=== PATIENT | male | born 1960 | race Caucasian/White ===

== ENCOUNTER 2020-01-09 17:44 | Emergency (ER) | payer MEDICAID ==
[~2020-01-09] VITALS: Ht 177.8 cm; Wt 81.6 kg
--- NOTE | 2020-01-09 17:55 | Emergency Room Report ---
History of Present Illness General Chief Complaint: Palpitations Source: Patient Present Illness HPI 59-year-old male with past medical history of hypertension presenting to the ER with palpitations. States he previously had chest pain, however that has resolved. Right now he is complaining of left posterior shoulder pain. Denies back pain, melena, hematochezia, dyspnea on exertion, cough, hemoptysis, leg swelling, weakness, fever, flank pain, hematuria or other symptoms The patient's symptoms were gradual onset, severity was moderate, duration since he was 8 years old He states that he has been having the symptoms "for the past 50 years" although worse over the past 1 day. Quality: Sharp, intermittent Past medical history: Hypertension Past surgical history: Denies Smoking: ++ Alcohol use: ++ Daily drinking Drug use: Denies Review of systems: CONST: No fevers or chills, No night sweats PULMONARY: No productive cough, No shortness of breath CARDIAC: No chest pain, ++ palpitations GI: No vomiting, No diarrhea , No melena_or_BRBPR : No dysuria, No hematuria, No discharge NEURO: No new_focal_weakness_or_numbness, No confusion, No vision changes 14 point Review of Systems is otherwise negative except per HPI Physical Exam: GENERAL: Awake_alert_ nontoxic, no acute distress Spo2 99% on RA -normal EYES: Extraocular muscles are intact. Conjunctivae clear. Lids without swelling ENT: External nose and ear normal_in_appearance. Oropharynx clear. Head_atraumatic, dry_oral_mucosa NECK: No JVD. No meningismus. No thyromegaly. Supple. Trachea midline. No nuchal rigidity RESP: Normal respiratory effort. Symmetric rise. No stridor. Clear_to_ausculta tion_No_rales_No_wheezes CARDIAC: Cardiac and regular rhytm. No_significant pedal edema. ABDOMEN: Soft. Nondistended. Nontender_No_rebound_or_guarding. MSK: Normal muscle tone, without rigidity. Extremities without asymmetric deformity or swelling. SKIN: Warm and dry. No visible cyanosis or pallor. No petechiae or purpura NEUROLOGIC: Alert, oriented x3. Motor_and_sensation_grossly_intact. No truncal ataxia. Gait_normal Psych: Normal mood and affect, normal judgment and insight - COORDINATION OF CARE Case was discussed with: Patient Any labs and imaging that were ordered were interpreted as part of the medical decision making: Medical Decision Making/Plan: Differential includes dehydration, acute coronary syndrome, pulmonary embolism, pneumonia, aortic dissection, pericardial tamponade, musculoskeletal chest pain, among others. Patient is nontoxic and well-appearing with stable vitals signs. The patients pain appears consistent with a musculoskeletal origin. Pain is re producible with palpation. EKG shows tachycardia without any obvious signs of ischemia. Tachycardia resolved after fluids. Also Ativan thiamine, folic acid. Patient demonstrates no signs of acute alcohol withdrawal or delirium tremens at the time of dis charge. CXR shows no evidence of pneumothorax, pneumonia, or significant pleural effusion. Troponin x1. CTA angio of the chest negative for PE, dissection, or other acute issue. He is incidentally found to have a lung nodule. Recommend repeat imaging within 1 year. No pneumonia Acute coronary syndrome is unlikely and the patient is low risk, pain is atypical, nonexertional, and troponin is negative with over 6 hrs of symptoms. The pain is not classic for pericarditis or myocarditis, and the patient has no significant risk factors for a pericardial effusion and has stable vitals signs, unlikely to have tamponade. The patient has no significant risk factors for aortic dissection, no history of connective tissue disorder, and the patients pain is not severe, radiating to the back, or tearing in nature. They have normal bilateral radial and pedal pulses. Patient observed for several hours in the ED, ECG with no emergent findings, patient discharged with no dangerous vital signs, patient instructed to follow up with PMD in the next 1-2 days to be referred for a treadmill stress test within the next 48-72 hours. HEART score < 4, which indicates low risk, so the patient can be safely discharged with the understanding that they need to make an appointment with a primary care doctor to be referred for a stress test within the next 48-72 hours, or if they cannot arrange that they are to return to the ED, or sooner than that if they have any changing, persistent, or worsening symptoms. A Train Driver consult was offered to the patient prior to discharge but the patient declined. All needs were met during this ED visit including food and water, change of clothes, prison referral/resources, and transportation. Allergies: Coded Allergies: No Known Allergies (Unverified , 01/09/20) COVID-19 Screening Contact w/high risk pt: No Experienced COVID-19 symptoms?: No COVID-19 Testing performed BARBER: No Nursing Documentation-PMH Hx Hypertension: Yes Physical Exam Vital Signs Date Time Temp Pulse Resp B/P (MAP) Pulse Ox O2 Delivery O2 Flow Rate FiO2 01/09/20 17:46 98.4 110 18 162/96 (118) 98 Room Air Sp02 EP Interpretation: reviewed, normal Medical Decision Making Diagnostic Impression: Primary Impression: Palpitations Additional Impressions: HTN (hypertension) Lung nodule EKG Diagnostic Results Troponin ordered: Yes When was troponin ordered?: Jan 09, 2020 EKG Time: 17:55 Rate: tachycardiac Rhythm: NSR ST Segments: no acute changes ASA given to the pt in ED: No PA Scribe Text 12-lead EKG (interpreted by me) Time: 1750 Indication: Rhythm analysis Tracing visualized and Interpreted by me. Rhythm: Sinus tachycardia Rate: 108 bpm QTc: 469 Morphology: No_significant_ST_elevations_or_depressions, No STEMI Impression: Sinus tachycardia. Normal axis. Normal intervals Rhythm Strip Diag. Results Rhythm Strip Time: 18:57 EP Interpretation: yes Rate: 98 Rhythm: NSR, no PVC's, no ectopy Chest X-Ray Diagnostic Results Chest X-Ray Diagnostic Results : DION Paizibe Text Chest X-Ray: Views: 1 view(s) Indication: Palpitations Findings: Normal heart size. Mediastinum normal. No infiltrate. Impression: No acute disease The X-ray(s) were independently viewed and interpreted contemporaneously Electronically signed by Aurora ford DO Last Vital Signs Date Time Temp Pulse Resp B/P (MAP) Pulse Ox O2 Delivery O2 Flow Rate FiO2 01/09/20 17:46 98.4 110 18 162/96 (118) 98 Room Air Disposition: HOME, SELF-CARE Admit Decision Time: 18:58 Condition: Stable Scripts Naproxen* (NAPROXEN*) 500 Mg Tablet. 500 MG ORAL TWICE A DAY for 14 Days, #28 TAB Prov: Aurora Monahan D.O. 01/09/20 Patient Instructions: Palpitations Additional Instructions: Instructions for patient/resident care technician: Follow up with your physician in 1-2 days. Follow-up with your doctor sooner if your condition requires a more timely clinical reevaluation. Return to the emergency department immediately if you feel that your condition is worsening or if you have any new or concerning symptoms. Review your discharge instructions and take any prescriptions given as instruct ed. You were found to have an abnormality on lung on your imaging which will need to be reimaged in approximately 3-6 months. Cancer or malignancy is one of the possibilities so it needs to be monitored to ensure that it is not changing. It is important that you see a primary doctor to be referred for this imaging. Failure to do so could lead to undetected worsening cancer or illness. [facility] PROVIDES FREE OR LOW-COST HEALTH SERVICES TO PEOPLE WHO CAN SHOW PROOF THAT THEY LIVE IN [facility]. TO FIND MORE CLINICS PARTNERED WITH THE [facility] TO PROVIDE SERVICE, PLEASE CALL . Aurora Monahan D.O. Jan 09, 2020 17:55
[2020-01-09] MEDS ORDERED: Thiamine 100mg tab ORAL ONE (18:00)
[2020-01-09] MEDS ORDERED: LORazepam 1mg tab ORAL ONE (18:00)
[2020-01-09] MEDS ORDERED: Ketorolac 30mg Inj IV ONE (18:00)
[2020-01-09] MEDS ORDERED: Omnipaque 350 100ml vial INJ PRN (18:00)
[2020-01-09 18:05] VITALS: BP 162/96
--- NOTE | 2020-01-09 18:05 | NUR ---
ED Nurse Note: Pt was BIBA RA26 from home c/o palpitations and generalized body pain x1 hr ago, stated that it was triggered by stress. Patient presented with strong smell of alcohol, AAO x2, HR 110, other VSS at this time.
--- NOTE | 2020-01-09 18:08 | NUR ---
ED Nurse Note: blood collected sent to lab
[2020-01-09] MEDS ORDERED: LORazepam Inj 2mg/ml 1ml IV ONE (18:30)
[2020-01-09 18:32] LABS: BASOPHILS % (AUTO) 1.4 % (0.0-2.0); HEMATOCRIT 38.7 % (42.0-52.0); HEMOGLOBIN 13.3 G/DL (14.2-18.0); LYMPHOCYTES % (AUTO) 29.4 % (20.0-45.0); MEAN CORPUSCULAR VOLUME 102 FL (80-99); MONOCYTES % (AUTO) 4.7 % (1.0-10.0); NEUTROPHILS % (AUTO) 50.6 % (45.0-75.0); PLATELET COUNT 161 K/UL (150-450); RED BLOOD COUNT 3.79 M/UL (4.70-6.10); RED CELL DISTRIBUTION WIDTH 13.1 % (11.6-14.8); WHITE BLOOD COUNT 7.6 K/UL (4.8-10.8)
[2020-01-09 18:42] LABS: ANION GAP 11 mmol/L (5-15); BLOOD UREA NITROGEN 13 mg/dL (7-18); CARBON DIOXIDE 27 MMOL/L (21-32); CHLORIDE 107 MMOL/L (98-107); CREATININE 1.4 MG/DL (0.55-1.30); POTASSIUM 3.9 MMOL/L (3.5-5.1); SODIUM 145 MMOL/L (136-145)
[2020-01-09 18:53] LABS: ALANINE AMINOTRANSFERASE 19 U/L (12-78); ALBUMIN 3.6 G/DL (3.4-5.0); ALBUMIN/GLOBULIN RATIO 1.3 (1.0-2.7); ALKALINE PHOSPHATASE 75 U/L (46-116); ASPARTATE AMINO TRANSFERASE 29 U/L (15-37); BILIRUBIN,TOTAL 0.2 MG/DL (0.2-1.0); CREATINE KINASE 228 U/L (26-308)
--- NOTE | 2020-01-09 19:00 | NUR ---
ED Nurse Note: patient was taken to CT via nadeemralexis
[2020-01-09] MEDS ORDERED: NAPROXEN500 M1 ORAL (19:01)
--- NOTE | 2020-01-09 19:09 | NUR ---
HAND-OFF: Report given to DEO Willard.
--- NOTE | 2020-01-09 19:25 | NUR ---
ED Nurse Note: Recieved report from DEO Dang to resume care, pt is currently returning from imaging from CTA being done, pt is awake, alert and oriented x 4, replaced to cardiac monitoring, v/s stable, pt pulled IV line out in imaging, no line, denies chest pain or any pain, no sob or labored breathing noted, will resume care and ciontinue to closely monitor, pt eating sandwich and juice.
[2020-01-09 19:40] VITALS: BP 140/83
--- NOTE | 2020-01-09 19:55 | Diagnostic Imaging Report ---
EXAM: CT Angiography Chest With Intravenous Contrast CLINICAL HISTORY: PE TECHNIQUE: Axial computed tomographic angiography images of the chest with intravenous contrast. CTDI is 70.50 mGy and DLP is 150.60 mGy-cm. One or more of the following dose reduction techniques were used: automated exposure control, adjustment of the mA and/or kV according to patient size, use of iterative reconstruction technique. MIP reconstructed images were created and reviewed. COMPARISON: None FINDINGS: Pulmonary arteries: Mild atherosclerotic calcifications are present within the thoracic aorta, which is normal in caliber. There is no evidence of aortic dissection or intramural hematoma. There is no evidence of pulmonary embolism to the segmental level. Aorta: No acute findings. No thoracic aortic aneurysm. Lungs: The heart size is normal. There is no significant pericardial effusion. There is no confluent airspace disease. There is a prominent paraseptal bulla within the anterior left lung. There is increased reticulation within the lower lobes possibly reflective of early fibrosis. There are a few scattered pulmonary nodules, measuring up to 4 mm (series 11 image 25). No mass. Pleural space: There are no significant pleural effusions or pneumothoraces. Heart: Unremarkable. No cardiomegaly. No significant pericardial effusion. No evidence of RV dysfunction. Bones/joints: No acute fracture. No dislocation Lymph nodes: Unremarkable. No enlarged lymph nodes. IMPRESSION: No acute cardiopulmonary process. No evidence of pulmonary embolism to the segmental level. Recommend repeat CT chest in one year to assess for nodule stability.
[2020-01-09 20:25] VITALS: BP 140/83
--- NOTE | 2020-01-10 16:36 | Diagnostic Imaging Report ---
Indication: Chest pain Technique: One view of the chest Comparison: none Findings: Lungs and pleural spaces are clear. Heart size is normal. Impression: No acute process
== END 2020-01-09 20:25 | disposition home or self-care (01) ==
LOC: EDBD 17:44 → EMR 18:35
DX: R00.2 Palpitations (principal); I10 Essential (primary) hypertension; R91.1 Solitary pulmonary nodule; Z72.89 Other problems related to lifestyle
CPT/HCPCS: 36415; 71045; 71275; 80053; 82550; 83880; 84484; 85025; 85610; 85730; 93005; 96361; 96374; 96375; J1885; J7030; Q9967; Z7502; 99284